=== PATIENT | female | born 1990 | race African-American/Black ===

== ENCOUNTER 2017-10-23 01:31 | Emergency (ER) | payer MEDICAID, OTHER ==
[~2017-10-23] VITALS: Ht 167.6 cm; Wt 73.0 kg
[2017-10-23] MEDS ORDERED: SODIUM CHLORIDE 0.9% 1,000 ML IV ONE (05:25)
[2017-10-23] MEDS ORDERED: ONDANSETRON HCL 4MG/2ML VIAL IV STA ×2 (05:25→06:09)
[2017-10-23] MEDS ORDERED: FAMOTIDINE 20MG/2ML VIAL IV STA (05:25)
[2017-10-23 06:00] VITALS: BP 120/86
[2017-10-23] MEDS ORDERED: FAMOTIDINE 20MG/2ML VIAL IV NR (06:15)
[2017-10-23 06:34] LABS: BASOPHILS % 0.5 % (0.0-2.0); EOSINOPHILS % 5.3 % (0.0-5.0); HEMOGLOBIN. 13.6 g/dL (12.0-16.0); LYMPHOCYTES % 44.4 % (20.0-50.0); MEAN CORPUSCULAR HEMOGLOBIN 28.3 pg (28.0-32.0); MEAN CORPUSCULAR VOLUME 87.4 fL (81.0-99.0); MEAN PLATELET VOLUME 9.1 fl (7.4-10.4); MONOCYTES % 9.9 % (2.0-8.0); NEUTROPHILS % 39.9 % (40.0-76.0); PLATELET 177 x1000/uL (130-400); RED CELL DISTRIBUTION WIDTH 15.5 % (11.6-14.6)
[2017-10-23 06:42] LABS: CHLORIDE 106 mEq/L (98-107)
[2017-10-23 06:47] LABS: ETHANOL BLOOD < 10 mg/dL
[2017-10-23 06:50] LABS: CLARITY URINE CLEAR (CLEAR); COLOR URINE YELLOW (YELLOW); KETONES URINE NEGATIVE (NEGATIVE); LEUKOCYTE ESTERASE URINE NEGATIVE (NEGATIVE); NITRITE URINE NEGATIVE (NEGATIVE); OCCULT BLOOD URINE NEGATIVE (NEGATIVE); PROTEIN URINE NEGATIVE (NEGATIVE); SPECIFIC GRAVITY URINE 1.019 (1.005-1.030); UROBILINOGEN URINE 0.2 E.U./dL (0.2-1.0)
[2017-10-23 07:28] LABS: *AMPHETAMINES SCREEN URINE NEGATIVE (NEGATIVE); *BARBITURATES SCREEN URINE NEGATIVE (NEGATIVE); *BENZODIAZEPINES SCREEN URINE NEGATIVE (NEGATIVE); *COCAINE SCREEN URINE NEGATIVE (NEGATIVE); CANNABINOID URINE SCREEN NEGATIVE (NEGATIVE); METHADONE URINE SCREEN NEGATIVE (NEGATIVE); OPIATES URINE SCREEN NEGATIVE (NEGATIVE); PHENCYCLIDINE URINE SCREEN NEGATIVE (NEGATIVE)
== END 2017-10-23 06:53 | disposition left against medical advice (07) ==
LOC: ER 01:31
DX: R10.11 Right upper quadrant pain (principal); R11.0 Nausea; R19.7 Diarrhea, unspecified; F17.200 Nicotine dependence, unspecified, uncomplicated
CPT/HCPCS: 36415; 80053; 80305; 81003; 81025; 83690; 85025; 96361; 96374; 96375; 99284; G0482; J2405; J3490; J7030

== ENCOUNTER 2019-03-18 06:11 | Emergency (ER) | payer MEDICAID ==
[~2019-03-18] VITALS: Ht 167.6 cm; Wt 77.0 kg
[2019-03-18 06:42] VITALS: BP 126/88
[2019-03-18] MEDS ORDERED: KETOROLAC 30MG/ML VIAL IM ONE (06:45)
== END 2019-03-18 08:12 | disposition home or self-care (01) ==
LOC: ER 06:32
DX: J02.8 Acute pharyngitis due to other specified organisms (principal)
CPT/HCPCS: 87070; 87430; 96372; 99283; J1885

== ENCOUNTER 2022-11-05 08:30 | Emergency (ER) | payer MEDICAID ==
[~2022-11-05] VITALS: Ht 165.1 cm; Wt 66.0 kg
[2022-11-05] MEDS ORDERED: HYDROCODONE/ACETAMINOPHEN 5/325MG TABLET PO ONE (09:15)
[2022-11-05 09:42] VITALS: BP 147/108
[2022-11-05] MEDS ORDERED: IBUP-2028 MT (11:01)
[2022-11-05] MEDS ORDERED: HYDR-4001 MT (11:01)
== END 2022-11-05 11:46 | disposition home or self-care (01) ==
LOC: ER 08:30
DX: S00.83XA Contusion of other part of head, initial encounter (principal); S20.20XA Contusion of thorax, unspecified, initial encounter; Y04.0XXA Assault by unarmed brawl or fight, initial encounter; Y93.89 Activity, other specified; Y92.89 Other specified places as the place of occurrence of the external cause; Y99.8 Other external cause status
CPT/HCPCS: 70486; 71101; 81025; 99284

== ENCOUNTER 2024-07-17 13:29 | Emergency (ER) | payer MEDICAID ==
[~2024-07-17] VITALS: Ht 167.6 cm; Wt 81.0 kg
[~2024-07-17 13:29] MED LIST: HYDR-4001 MT; IBUP-2028 MT
[2024-07-17 14:06] VITALS: BP 120/93; PULSE 96; RESP 18; TEMP 98.4; O2SAT 100
== END 2024-07-17 16:43 | disposition left against medical advice (07) ==
LOC: ER 13:29
DX: R42 Dizziness and giddiness (principal); Z53.21 Procedure and treatment not carried out due to patient leaving prior to being seen by health care provider